=== PATIENT | female | born 1970 | race Caucasian/White ===

== ENCOUNTER 2023-12-09 19:04 | Emergency (ER) | payer BC, SELFPAY ==
[2023-12-09 19:09] VITALS: BP 158/96
--- NOTE | 2023-12-09 19:50 | ED.GENMED ---
History of Present Illness
General
Chief Complaint: Headache
Source: patient
Exam Limitations: none
Time Seen by Provider: 12/09/23 19:33
Nursing documentation reviewed up to this point in time: agreed with
Travel History
Have you had any contact with someone who has COVID-19?: No
Do you have any symptoms of coronavirus? Fever > 100 degrees, chills, cough, shortness of breath, sore throat, loss of taste or smell, muscle aches, or headache?: No
History of Present Illness
History of Present Illness:
Patient to ED with complaint of migraine headache x 9 days. Taking her normal migraine medication without improvement. +nausea and vomiting. States migraine feels like typical migraine, just not responding to med.s.
Past History
Past History
ED Past Medical History: Other (Migraines) and Other (Multiple dog bites)
ED Past Surgical History: Bowel resection and Gynecological (partial hysterectomy)
Patient has exhibited threatening behavior?: No
Social History
Tobacco: Non-smoker
Alcohol: Occasional
Drug: None
Personal:
Living: with family
Employment: Employed
Family History
Family History: Other (NA)
Review of Systems
Review of Systems
Allergies reviewed?: Yes
All Other Systems: ROS reviewed and negative except as documented in HPI and ROS
Constitutional: Reports no symptoms
EENT: Reports no symptoms
Respiratory: Reports no symptoms
Cardiac: Reports no symptoms
ABD/GI: Reports nausea and vomiting
: Reports no symptoms
Musculoskeletal: Reports no symptoms
Skin: Reports no symptoms
Neurological: Reports headache (migraine)
Psychiatric: Reports no symptoms
Phy Exam
General Physical Exam
General Presentation: well appearing and mild distress
General age: appears stated age
General Skin: warm and dry
General Habitus: normal
General Mental: alert
Neurological Exam
Neurological Exam: alert, oriented x3, CN II-XII intact, no motor deficits, no sensory deficits, speech normal and normal gait
Musculoskeletal Exam
Musculoskeletal Exam: full ROM and neuro vasc intact
Skin Exam
Skin Exam: normal color, warm/dry and no rash
Psychiatric Exam
Psychiatric Exam: normal mood/affect
Course
Orders/Labs/Results
Orders:
Orders
12/09/23 19:47
0.9% Sodium Chloride 1000 ml [Nss] 1,000 ml IV BOLUS
Diphenhydramine [Benadryl] 50 mg IV NOW STA
Ketorolac [Toradol] 30 mg IV NOW STA
Prochlorperazine [Compazine] 10 mg IV NOW STA
12/09/23 19:54
Complete Blood Count/With Diff Urgent
12/09/23 19:57
CMP [Comprehensive Metabolic Panel] Urgent
Abnormal Lab Results
12/09/23
19:54
RBC 4.16 L 10^6/uL
(4.20-5.40)
Hgb 11.9 L g/dL
(12.0-16.0)
Hct 34.1 L %
(37.0-47.0)
12/09/23 19:54
12/09/23 19:57
Vital Signs
Initial and Last Documented VS:
Initial Vital Signs
Temp Pulse Resp BP Pulse Ox
97.7 F 76 19 158/96 100
12/09/23 19:09 12/09/23 19:09 12/09/23 19:09 12/09/23 19:09 12/09/23 19:09
Last Documented Vital Signs
Temp Pulse Resp BP Pulse Ox
97.7 F 71 18 121/78 99
12/09/23 19:09 12/09/23 21:21 12/09/23 21:21 12/09/23 21:21 12/09/23 21:21
*Critical Care Note
Total Time (30-74mins, 75-104mins- exclusive of procedures): Not Applicable
Update Note
Update Note:
IMproved with IVF and migraine cocktail. WIll discharge home. Given instructions on s/s to return to ED and she is agreeable to plan.
ED Attending Note
-
Portions of this chart may have been created with voice recognition software.� Occasional wrong word or��sound alike� substitutions may have occurred due to the inherent limitations of voice recognition software.
Discharge Plan
Departure
Patient Disposition: Home (Routine Discharge)
Date of Disposition: 12/09/23
Time of Disposition: 21:20
Patient with high blood pressure during this ER visit?: No
Condition: Good
Covid-19: Not Applicable
Discharge Problem:
Migraine
Instructions: Migraines (DC)
Prescriptions:
No Action
venlafaxine 75 MG capsule,extended release 24hr
75 mg PO DAILY
venlafaxine [Effexor XR] 150 MG capsule,extended release 24hr
150 mg PO DAILY
dihydroergotamine 1 MG/ML solution
1 mg IM PRN PRN (Reason: migraines)
Patient Comments:
last taken about one month ago
ketorolac 30 MG/ML solution
30 mg IM PRN PRN (Reason: Migraine)
pramipexole [Mirapex] 0.5 MG tablet
0.5 mg PO HS
buspirone 10 MG tablet
10 mg PO DAILY
promethazine 25 MG tablet
25 mg PO PRN PRN (Reason: Migraine)
bupropion HCl 150 MG tablet extended release 24 hr
150 mg PO DAILY
methen-m.blue-s.lnmb-nqzlj-eiz [Uribel] 1 EACH capsule
1 cap PO PRN PRN (Reason: Bladder Pain)
methen-m.blue-s.dcle-eqiga-fba [Uribel] 1 EACH capsule
1 cap PO DAILY
plecanatide [Trulance] 3 MG tablet
3 mg PO DAILY
multivitamin 1 EACH tablet
1 ea PO DAILY
dronabinol [Marinol] 5 MG capsule
5 mg PO PRN PRN (Reason: Nausea)
Referrals:
Alie Berry MD [Family Provider] - Follow up in 2-3 days
Interventions
Interventions:
*Risk Screen - Suicide Last Done: 12/09/23 19:09
*General Assessment Last Done: 12/09/23 19:09
*Neglect/Abuse Screening Last Done: 12/09/23 19:09
ED- Fall Risk Assessment Last Done: 12/09/23 19:29
*ED COVID-19 Vaccine History Last Done: 12/09/23 19:09
*Nursing Disposition Last Done: 12/09/23 21:25
ED- Neurological Assessment Last Done: 12/09/23 19:29
Discharge Date and Time
Discharge Date/Time: 12/09/23 21:26
Print Language: GREEK
[2023-12-09] MEDS: NSS 1000 IV (19:57)
[2023-12-09] MEDS: COMPAZINE 10 MG IV (19:59)
[2023-12-09] MEDS: TORADOL 30 MG IV (19:59)
[2023-12-09] MEDS: BENADRYL 50 MG IV (19:59)
[2023-12-09 20:10] LABS: % Basophils 0.6 % (0-2); % Eosinophils 3.3 % (0-6); % Immature Granulocytes 0.4 % (0-0.5); % Lymphocytes 30.3 % (20.5-51.1); % Monocytes 5.2 % (1.7-9.3); % Neutrophils 60.2 % (42.2-75.2); Absolute Eosinophils 0.2 10^3/uL (0-0.7); Absolute Lymphocytes 2.1 10^3/uL (1.2-3.4); Absolute Monocytes 0.4 10^3/uL (0.1-0.6); Absolute Neutrophils 4.2 10^3/uL (1.4-6.5); Hematocrit 34.1 % (37.0-47.0); Hemoglobin 11.9 g/dL (12.0-16.0); Mean Corp Hgb Conc. 34.9 g/dL (33.0-37.0); Mean Corpuscular Hgb 28.6 pg (27.0-31.0); Nucleated Red Blood Cells % 0 %; Platelet Count 232 10^3/uL (130-400); Red Blood Cell Count 4.16 10^6/uL (4.20-5.40)
[2023-12-09 20:25] LABS: ALT (SGPT) 19 U/L (0-35); AST (SGOT) 30 U/L (14-36); Albumin 4.3 g/dl (3.5-5.0); Alkaline Phosphatase 70 U/L (38-126); Blood Urea Nitrogen 12 mg/dl (7-17); Calcium 9.6 mg/dl (8.4-10.2); Carbon Dioxide 25 mmol/L (22-30); Chloride 107 mmol/L (98-107); Glucose 86 mg/dl (70-99); Potassium 3.8 mmol/L (3.5-5.1); Sodium 140 mmol/L (135-145); Total Bilirubin 0.3 mg/dl (0.2-1.3); Total Protein 7.1 g/dl (6.3-8.2); eGFR > 60.00
[2023-12-09 21:21] VITALS: BP 121/78
== END 2023-12-09 21:26 | disposition home or self-care (01) ==
LOC: EMR 19:04
PROVIDERS: Nurse Practitioner; EMERGENCY PHYSICIAN Emergency Medicine; FAMILY PHYSICIAN Family Medicine; REFERRING PHYSICIAN Psychiatry & Neurology Neuromuscular Medicine
DX: G43.909 Migraine, unspecified, not intractable, without status migrainosus (principal); R11.2 Nausea with vomiting, unspecified; K58.9 Irritable bowel syndrome, unspecified; D50.9 Iron deficiency anemia, unspecified; Z98.0 Intestinal bypass and anastomosis status; Z88.1 Allergy status to other antibiotic agents; Z88.5 Allergy status to narcotic agent; Z88.2 Allergy status to sulfonamides; Z88.8 Allergy status to other drugs, medicaments and biological substances; Z91.048 Other nonmedicinal substance allergy status
CPT/HCPCS: 99284; 96374; 96375 ×2; 96361; 80053; 85025

== ENCOUNTER → 2023-12-21 15:02 | Outpatient (REF) | payer BC, SELFPAY | LOC: WDC 15:02 | PROVIDERS: ATTENDING PHYSICIAN Family Medicine | DX: R92.2 Inconclusive mammogram (principal) | CPT/HCPCS: 76641 ==

== ENCOUNTER → 2024-01-28 07:56 | Outpatient (REF) | payer BC, SELFPAY | LOC: HWWDC 07:56 | PROVIDERS: ATTENDING PHYSICIAN Obstetrics & Gynecology; FAMILY PHYSICIAN Family Medicine | DX: Z12.31 Encounter for screening mammogram for malignant neoplasm of breast (principal) | CPT/HCPCS: 77063; 77067 ==

== ENCOUNTER → 2025-01-28 08:24 | Outpatient (REF) | payer BC, SELFPAY | LOC: HWWDC 08:24 | PROVIDERS: ATTENDING PHYSICIAN Obstetrics & Gynecology; FAMILY PHYSICIAN Family Medicine | DX: Z12.31 Encounter for screening mammogram for malignant neoplasm of breast (principal) | CPT/HCPCS: 77063; 77067 ==